=== PATIENT | male | born 1940 | race Two or more races ===

== ENCOUNTER 2019-10-26 23:38 | Inpatient (IN) | payer OTHER ==
[~2019-10-26] VITALS: Ht 91.4 cm; Wt 5.0 kg
[2019-10-26] MEDS ORDERED: HUMALOG100 UNIT/2 (23:56)
[2019-10-26] MEDS ORDERED: RAMIPRIL10 MG (23:57)
[2019-10-27] MEDS ORDERED: TAMS0.4C (00:17)
[2019-10-27] MEDS ORDERED: PRILOSEC10 MG (00:18)
[2019-10-27] MEDS ORDERED: JANUVIA25 MG (00:18)
[2019-10-27] MEDS ORDERED: LIPITOR40 M1 (00:18)
[2019-11-07] MEDS ORDERED: TAMSULOSIN HCL0.4 MG PO (16:23)
[2019-11-07] MEDS ORDERED: NIFEDIPINE ER30 MG PO (16:23)
[2019-11-07] MEDS ORDERED: TOPROL XL25 M1 PO (16:23)
[2019-11-07] MEDS ORDERED: CARdura 2MG TABLET PO (16:23)
== END 2019-11-07 20:42 | disposition home or self-care (01) | DRG 193 ==
LOC: ER 23:38 → MEDJ 10-27 09:46 → ICU-2 10-27 09:46 → ICU 11-03 02:15 → MEDJ 11-04 22:00
PROVIDERS: ADMIT Internal Medicine
PROC: B246ZZZ Ultrasonography of Right and Left Heart (ICD-10-PCS; principal; 2019-10-27)
PROC: BB24ZZZ Computerized Tomography (CT Scan) of Bilateral Lungs (ICD-10-PCS; 2019-10-27)
PROC: 4A033R1 Measurement of Arterial Saturation, Peripheral, Percutaneous Approach (ICD-10-PCS; 2019-10-27)
PROC: 3E0F7GC Introduction of Other Therapeutic Substance into Respiratory Tract, Via Natural or Artificial Opening (ICD-10-PCS; 2019-10-27)
PROC: BT43ZZZ Ultrasonography of Bilateral Kidneys (ICD-10-PCS; 2019-10-28)
PROC: 8E0ZXY6 Isolation (ICD-10-PCS; 2019-10-28)
DX: J10.00 Influenza due to other identified influenza virus with unspecified type of pneumonia (principal); I50.31 Acute diastolic (congestive) heart failure; I33.9 Acute and subacute endocarditis, unspecified; R65.11 Systemic inflammatory response syndrome (SIRS) of non-infectious origin with acute organ dysfunction; J80 Acute respiratory distress syndrome; I13.0 Hypertensive heart and chronic kidney disease with heart failure and stage 1 through stage 4 chronic kidney disease, or unspecified chronic kidney disease; E87.1 Hypo-osmolality and hyponatremia; N17.8 Other acute kidney failure; N40.1 Benign prostatic hyperplasia with lower urinary tract symptoms; N18.2 Chronic kidney disease, stage 2 (mild); E11.22 Type 2 diabetes mellitus with diabetic chronic kidney disease; E11.65 Type 2 diabetes mellitus with hyperglycemia; E86.0 Dehydration; R33.8 Other retention of urine; R31.0 Gross hematuria; D69.59 Other secondary thrombocytopenia; Z79.4 Long term (current) use of insulin

== ENCOUNTER 2019-11-08 07:20 | Emergency (ER) | payer OTHER ==
[~2019-11-08] VITALS: Ht 160 cm; Wt 86.2 kg
[~2019-11-08 07:20] MED LIST: CARdura 2MG TABLET PO; HUMALOG100 UNIT/2; JANUVIA25 MG; LIPITOR40 M1; NIFEDIPINE ER30 MG PO; PRILOSEC10 MG; RAMIPRIL10 MG; TAMS0.4C; TAMSULOSIN HCL0.4 MG PO; TOPROL XL25 M1 PO
== END 2019-11-08 12:25 | disposition home or self-care (01) ==
LOC: ER 07:20
DX: N40.1 Benign prostatic hyperplasia with lower urinary tract symptoms (principal); R33.8 Other retention of urine